=== PATIENT | male | born 1935 | race Caucasian/White ===

== ENCOUNTER 2020-01-15 08:32 | Day surgery (SDC) | payer OTHER, SELFPAY ==
[~2020-01-15] VITALS: Ht 182.9 cm; Wt 65.8 kg
[~2020-01-15 08:32] MED LIST: CEFAZOLIN SOD 1 GM in D5W 50 ML IV ONE
[2020-01-15] MEDS ORDERED: POLYMYXIN 500,000/BACIT.10,000 UNITS in NS IRR 1 L IR ONE (11:21)
[2020-01-15] MEDS ORDERED: fentaNYL CITRATE/PF 100 MCG/2 ML AMP IVP ONE (12:30)
[2020-01-15] MEDS ORDERED: BUPIVACAINE /EPINEPHRINE/PF 0.25% 30 ML VIAL INJ ONE (12:30)
[2020-01-15] MEDS ORDERED: LR 1,000 ML IV.SOLN IV ONE (12:30)
[2020-01-15] MEDS ORDERED: LIDOCAINE 1% 10 MG/ML, 20 ML MDV IM ONE (12:30)
[2020-01-15] MEDS ORDERED: ONDANSETRON HCL 4 MG/2 ML VIAL IVP ONE (12:30)
[2020-01-15] MEDS ORDERED: METOCLOPRAMIDE HCL 10 MG/2 ML VIAL IVP ONE (12:30)
[2020-01-15] MEDS ORDERED: NS 1000 ML IV.SOLN IV ONE (12:30)
[2020-01-15] MEDS ORDERED: ePHEDrine sulfate 50 MG/ML VIAL IVP ONE (12:30)
[2020-01-15] MEDS ORDERED: HEPARIN SODIUM,PORCINE/NS/PF 1,000 UNITS/500 ML BAG IV ONE (12:30)
[2020-01-15] MEDS ORDERED: MIDAZOLAM HCL 5 MG/5 ML VIAL IVP ONE (12:30)
[2020-01-15] MEDS ORDERED: DEXAMETHASONE SOD PHOSPHATE 4 MG/ML VIAL IVP ONE (12:30)
[2020-01-15] MEDS ORDERED: PROPOFOL 200MG/ 20ML VIAL (DIPRIVAN) IV ONE (12:30)
[2020-01-15] MEDS ORDERED: SEVOFLURANE 15 MIN GAS INH ONE (12:30)
[2020-01-15] MEDS ORDERED: HYDROmorphone 1 MG INJ. 1 MG/ML AMPUL IVP PRN (13:30)
[2020-01-15] MEDS ORDERED: ACETAMINOPHEN 325 MG TABLET PO ONE (13:30)
[2020-01-15] MEDS ORDERED: METOCLOPRAMIDE HCL 10 MG/2 ML VIAL IVP PRN (13:30)
[2020-01-15] MEDS ORDERED: HYDROcodone/ACETAMIN 5-325 MG TAB (NORCO/ VICODIN) PO PRN (13:45)
[2020-01-15] MEDS ORDERED: D5/0.45 NS 1,000 ML IV SCH (13:45)
[2020-01-15 15:40] VITALS: BP_SYST 107
== END 2020-01-15 15:35 | disposition home or self-care (01) ==
LOC: SDS 08:32
PROVIDERS: ATTEND Colon & Rectal Surgery
DX: Z45.2 Encounter for adjustment and management of vascular access device (principal); C18.9 Malignant neoplasm of colon, unspecified; Z20.828 Contact with and (suspected) exposure to other viral communicable diseases
CPT/HCPCS: 36561; 71045; 77001; C1788; J0690; J1100; J1644; J2001; J2250; J2405; J2704; J2765; J3010; J3490; J7030; J7060; J7120; U0003; 76000